=== PATIENT | female | born 1985 | race Caucasian/White ===

== ENCOUNTER 2022-03-01 22:22 | Emergency (ER) | payer MEDICAID, SELFPAY ==
[2022-03-01 22:33] VITALS: BP 133/78; PULSE 81; RESP 20; TEMP 36.4; O2SAT 97; BMI 28.2
--- NOTE | 2022-03-01 22:33 | CTR_ITS ---
PROCEDURE INFORMATION: Exam: CT Cervical Spine Without Contrast Exam date and time: 03/01/2022 10:55 PM Age: 36 years old Clinical indication: Injury or trauma; Fall; Blunt trauma; [place]: [place] striking back of head against a rock with loc. C/O head and neck pain. Lac to back of head. TECHNIQUE: Imaging protocol: Computed tomography images of the cervical spine without contrast. Radiation optimization: All CT scans at this facility use at least one of these dose optimization techniques: automated exposure control; mA and/or kV adjustment per patient size (includes targeted exams where dose is matched to clinical indication); or iterative reconstruction. COMPARISON: CT head wo con* [id number] 03/01/2022 10:52 PM RADIATION DOSE METRICS: Total DLP (mGy-cm): 728.42 FINDINGS: Bones/joints: Cervical lordosis is reversed. No cervical fracture. Discs/Spinal canal/Neural foramina: There are small disc spur complexes at C4-C5, C5-C6 and C6-C7 producing mild central canal narrowing. Interspace narrowing is most pronounced at C5-C6, C6-C7 and C7-T1. Lungs: Lung apices are normal. Soft tissues: Unremarkable. CT/CT cervical spin wo con* [id number] IMPRESSION: 1. No acute cervical spine findings. 2. Scattered small disc spur complexes without significant stenosis. 3. Reversed lordosis could be incidental but can also indicate spasm
--- NOTE | 2022-03-01 22:33 | CTR_ITS ---
PROCEDURE INFORMATION: Exam: CT Head Without Contrast Exam date and time: 03/01/2022 10:52 PM Age: 36 years old Clinical indication: Injury or trauma; Fall; Blunt trauma (contusions or hematomas); Patient [place]: [place] striking back of head against a rock with loc. C/O head and neck pain. Lac to back of head. TECHNIQUE: Imaging protocol: Computed tomography of the head without contrast. Radiation optimization: All CT scans at this facility use at least one of these dose optimization techniques: automated exposure control; mA and/or kV adjustment per patient size (includes targeted exams where dose is matched to clinical indication); or iterative reconstruction. COMPARISON: No relevant prior studies available. RADIATION DOSE METRICS: Total DLP (mGy-cm): 777.47 FINDINGS: Tubes, catheters and devices: There is a left parietal paracentral scalp laceration with associated scattered subcutaneous hemorrhage and overlying bandages. Brain: No extra-axial fluid collection, midline shift or hydrocephalus. Cerebral ventricles: No ventriculomegaly. Paranasal sinuses: Visualized sinuses are unremarkable. No fluid levels. Mastoid air cells: Visualized mastoid air cells are well aerated. Bones/joints: Unremarkable. No acute fracture. Soft tissues: Unremarkable. Other findings: No CT evidence for acute ischemia, mass or hemorrhage. CT/CT head wo con* [id number] IMPRESSION: 1. No acute intracranial findings. 2. Left parietal scalp laceration
--- NOTE | 2022-03-01 22:34 | W.ED.FALL ---
Documented by User: Landen Zhang MD 03/01/22 23:56 HPI - Fall General: Chief Complaint: Fall Stated Complaint: FALL/HIT HEAD Time Seen by Provider: 03/01/22 22:31 Source: patient and EMS Mode of arrival: EMS Limitations: no limitations History of Present Illness: 36-year-old female states that she was of the [place] tonight slipped and fell roughly 2 hours ago. She states that she struck the back of her head on a rock she does have a 2 cm laceration she had a roughly 1 minute loss of consciousness. Patient states she does have a headache and neck pain she rates a 5 out of 10. Denies any worsening improving factors. Associated symptoms-after fall: Reports headache(s) and neck pain; Denies abdominal pain or chest pain Review of Systems Const: Denies: fever(s), chills, body aches or change in appetite Eyes: Denies: blurry vision or eye discomfort ENMT: Denies: throat pain or dental pain Card: Denies: chest pain Resp: Denies: dyspnea GI: Denies: abdominal pain, nausea, vomiting or diarrhea : Denies: dysuria Musc: Reports: neck pain Skin/Breast: Denies: rash Neuro: Reports: headache(s) Psych: Denies: depression Harvey/Lymph: Denies: easy bruising All/Imm: Denies: urticaria PFSH ED PFSH: Medical History (Updated 03/01/22 @ 23:38 by Landen Zhang MD) Anxiety Depression History of drug dependence/abuse Nightmares Obesity PTSD (post-traumatic stress disorder) Surgical History History of appendectomy (~2013) History of dilatation and curettage (~2004) History of laparoscopic cholecystectomy (~2012) Family History Denies family history of Anesthesia complication Bleeding disorder Social History Smoking and tobacco status: current every day smoker (vapes) Quit status (tobacco): has quit using tobacco Year quit tobacco: 2014 Second hand smoke exposure: No Alcohol intake: never Adopted: No Caregiver/support person: Yes Lives independently: Yes Housing: House Marital status: Single service: No Current occupational status: disabled Current occupational exposures/hazards: No Pets and animals: No History of recent travel: No Leisure activites: exercise and reading Sexually active: No Current gender identity: Female Ivana/Pentecostal: [employer] Special ivana needs: No Agree to transfusion: No Financial difficulty paying for basics: Decline to Answer Physical Exam Const: COMMON NORMALS: no acute distress, patient oriented x3 and healthy appearing HENMT: COMMON NORMALS: normocephalic; head/scalp not atraumatic (2cm posterior scalp laceration) HEAD & SCALP: normocephalic; not atraumatic (2cm posterior scalp laceration) Eye: COMMON NORMALS: Equal, round and reactive pupils present and EOMs intact bilaterally PUPIL: Yes Equal, round and reactive pupils present Neck/C-Spine: COMMON NORMALS: full ROM and supple Chest: COMMONS NORMALS: normal inspection of the chest and normal palpation of entire chest wall Resp: COMMON NORMALS: normal respiratory effort, No retractions, No use of accessory muscles and clear to auscultation bilaterally AUSCULTATION: clear to auscultation bilaterally Cardio: COMMON NORMALS: regular rate, regular rhythm and No murmurs present (Cardio) RATE: regular rate RHYTHM: regular rhythm GI: COMMON NORMALS: Normal to inspection, nondistended, normoactive bowel sounds present, Soft to palpation, non-tender and no masses PALPATION: Yes Soft to palpation Extremity: COMMON NORMALS: normal to inspection and full ROM Neuro: COMMON NORMALS: patient oriented x3, moves all extremities and no focal motor deficits Psych: COMMON NORMALS: mental status grossly normal, Normal thought process present and cooperative THOUGHT PROCESS: Normal thought process present Skin: COMMON NORMALS: no rashes or lesions noted and no wounds GENERAL SKIN EXAM: no rashes or lesions noted Course Vital Signs: Vital signs: Vital Signs Temperature 97.6 F 03/01/22 22:33 Pulse Rate 81 03/01/22 22:33 Respiratory Rate 20 H 03/01/22 22:33 Blood Pressure 133/78 03/01/22 22:33 Pulse Oximetry 97 03/01/22 22:33 MDM - Fall Medical Decision Making Patient presents here with a head injury along with a cervical strain from a fall she also has a head laceration was repaired here she is return in 1 week for staple removal she is stable for discharge is to follow-up with PCP and return if worsening she understands agrees to plan. Lab Data Radiology Impressions Cervical Spine CT 03/01/22 22:33 IMPRESSION: 1. No acute cervical spine findings. 2. Scattered small disc spur complexes without significant stenosis. 3. Reversed lordosis could be incidental but can also indicate spasm Head CT 03/01/22 22:33 IMPRESSION: 1. No acute intracranial findings. 2. Left parietal scalp laceration Shoulder X-Ray 03/01/22 23:39 IMPRESSION: Unremarkable Chest X-Ray 03/01/22 23:42 IMPRESSION: Unremarkable Discharge Plan Discharge Patient Disposition: Home Clinical Impression: Fall Qualifiers: Encounter type: initial encounter Qualified Code(s): W19.XXXA - Unspecified fall, initial encounter Laceration of head Qualifiers: Encounter type: initial encounter Location of open wound of head: scalp Foreign body presence: without foreign body Qualified Code(s): S01.01XA - Laceration without foreign body of scalp, initial encounter Condition: Stable Prescriptions: New methocarbamol 750 mg tablet 750 mg PO Q6H PRN (Reason: spasms) Qty: 20 0RF No Action mupirocin 2 % ointment 1 applic topical BID Qty: 22 0RF gabapentin 800 mg tablet 800 mg PO QID 0RF ibuprofen 800 mg tablet 800 mg PO Q8H 0RF hydroxyzine pamoate [Vistaril] 50 mg capsule 50 mg PO QID PRN0RF ranitidine HCl [Zantac] 150 mg tablet 150 mg PO BID 0RF quetiapine [Seroquel] 50 mg tablet 50 mg PO DAILY 0RF citalopram [Celexa] 40 mg tablet 40 mg PO DAILY 0RF buprenorphine-naloxone [Suboxone] 8-2 mg film 1 film BUCCAL TID 0RF cholecalciferol (vitamin D3) 50 mcg (2,000 unit) capsule 2,000 unit PO DAILY 0RF magnesium 200 mg tablet 400 mg PO DAILY 0RF prednisone 20 mg tablet 40 mg PO DAILY 5 Days Qty: 10 0RF Discharge Orders: Discharge ED (Routine); Ordered 03/01/22 Ordered By: Landen Zhang Referrals: Jaimie Ortega NP [Primary Care Provider] - 1-3 days Discharge Diet: Advance as tolerated Discharge Activity: Resume usual activity Patient Instructions: Head Laceration (ED) Activity Restrictions/Additional Instructions: staple removal in 7 days Coding Level of Care Code ED Manager Environmental Services for Chg Fwd Exam Comprehensive Documented by User: DONALD Olivas 03/02/22 00:13 HPI - Fall General: Chief Complaint: Fall Stated Complaint: FALL/HIT HEAD Time Seen by Provider: 03/01/22 22:31 [facility] ED PFSH: Medical History (Updated 03/01/22 @ 23:38 by Landen Zhang MD) Anxiety Depression History of drug dependence/abuse Nightmares Obesity PTSD (post-traumatic stress disorder) Surgical History History of appendectomy (~2013) History of dilatation and curettage (~2004) History of laparoscopic cholecystectomy (~2012) Family History Denies family history of Anesthesia complication Bleeding disorder Social History Smoking and tobacco status: current every day smoker (vapes) Quit status (tobacco): has quit using tobacco Year quit tobacco: 2014 Second hand smoke exposure: No Alcohol intake: never Adopted: No Caregiver/support person: Yes Lives independently: Yes Housing: House Marital status: Single service: No Current occupational status: disabled Current occupational exposures/hazards: No Pets and animals: No History of recent travel: No Leisure activites: exercise and reading Sexually active: No Current gender identity: Female Ivana/Pentecostal: [employer] Special ivana needs: No Agree to transfusion: No Financial difficulty paying for basics: Decline to Answer Procedures Laceration Laceration 1: Site: scalp Size (cm): 4 Description: linear Local Anesthetic: lidocaine 1% and with epi Amount of anesthesia used (mL): 3 Pre-repair: wound explored, irrigated extensively and deep structures intact Skin layer closed with: other (staple) Number of sutures: 7 Course ED course: 2320, wound closed to occipital scalp with 7 sutures, patient tolerated well. [email or web address] Vital Signs: Vital signs: Vital Signs Temperature 97.6 F 03/01/22 22:33 Pulse Rate 81 03/01/22 22:33 Respiratory Rate 20 H 03/01/22 22:33 Blood Pressure 133/78 03/01/22 22:33 Pulse Oximetry 97 03/01/22 22:33 MDM - Fall Lab Data Radiology Impressions Cervical Spine CT 03/01/22 22:33 IMPRESSION: 1. No acute cervical spine findings. 2. Scattered small disc spur complexes without significant stenosis. 3. Reversed lordosis could be incidental but can also indicate spasm Head CT 03/01/22 22:33 IMPRESSION: 1. No acute intracranial findings. 2. Left parietal scalp laceration Shoulder X-Ray 03/01/22 23:39 IMPRESSION: Unremarkable Chest X-Ray 03/01/22 23:42
--- NOTE | 2022-03-01 23:39 | XRR_ITS ---
PROCEDURE INFORMATION: Exam: XR Right Shoulder Exam date and time: 03/01/2022 11:43 PM Age: 36 years old Clinical indication: Injury or trauma; Fall; Blunt trauma (contusions or hematomas); Right; Patient [place]: [place] C/O RT shoulder pain. TECHNIQUE: Imaging protocol: XR Right shoulder. Views: 2 or more views. COMPARISON: CT cervical spin wo con* [id number] 03/01/2022 10:55 PM FINDINGS: Bones/joints: Normal. Soft tissues: Normal. XR/XR shoulder RT min 2V* [id number] IMPRESSION: Unremarkable
--- NOTE | 2022-03-01 23:42 | XRR_ITS ---
PROCEDURE INFORMATION: Exam: XR Chest Exam date and time: 03/01/2022 11:51 PM Age: 36 years old Clinical indication: Injury or trauma; Fall; Blunt trauma (contusions or hematomas); Prior surgery; Surgery type: Gb; Patient HX: [place] C/O RT chest wall pain. TECHNIQUE: Imaging protocol: XR of the chest. Views: 1 view. COMPARISON: CR (CHEST, ) 03/01/2022 11:43 PM FINDINGS: Lungs: Unremarkable. No consolidation. Pleural spaces: Unremarkable. No pleural effusion. No pneumothorax. Heart/Mediastinum: Unremarkable. No cardiomegaly. Bones/joints: Unremarkable. XR/XR chest 1V portable [id number] IMPRESSION: Unremarkable
[2022-03-02 00:47] VITALS: BP 113/73; PULSE 76; RESP 16; O2SAT 95
== END 2022-03-02 00:57 | disposition home or self-care (01) ==
PROVIDERS: Emergency Provider Emergency Medicine; PCP Nurse Practitioner
DX: S01.01XA Laceration without foreign body of scalp, initial encounter (principal); W01.198A Fall on same level from slipping, tripping and stumbling with subsequent striking against other object, initial encounter
CPT/HCPCS: 12002; 70450; 71045; 72125; 73030; 99283

== ENCOUNTER → 2024-06-25 13:36 | Outpatient (BNVA) | payer MEDICAID, SELFPAY | PROVIDERS: PCP Nurse Practitioner; Visit Provider Nurse Practitioner | DX: R10.9 Unspecified abdominal pain (principal) | CPT/HCPCS: 81000 ==

== ENCOUNTER 2024-08-21 16:11 | Emergency (ER) | payer MEDICAID, SELFPAY ==
[2024-08-21 16:22] VITALS: BP 126/79; PULSE 81; RESP 16; TEMP 36.7; O2SAT 99; BMI 23.6
[2024-08-21 16:29] VITALS: BP 136/81; PULSE 73; O2SAT 98
[2024-08-21 16:59] VITALS: BP 132/89; PULSE 71; O2SAT 100
--- NOTE | 2024-08-21 17:04 | ECG_ITS ---
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 Measurements Intervals [place] Rate: 70 P: 39 NM: 221 QRS: 19 QRSD: 87 T: 37 QT: 376 QTc: 407 Interpretive Statements SINUS RHYTHM WITH FIRST DEGREE AV BLOCK No previous ECG available for comparison Electronically Signed On 08-24-2024 10:39:13 CREATIVE ASSISTANT by Karlos Cm M.D. [email or web address]
--- NOTE | 2024-08-21 17:04 | XRR_ITS ---
PROCEDURE INFORMATION: Exam: XR Chest Exam date and time: 08/21/2024 5:18 PM Age: 39 years old Clinical indication: Other: Dizzy TECHNIQUE: Imaging protocol: Radiologic exam of the chest. Views: 1 view. COMPARISON: CR XR chest 1V portable [id number] 03/01/2022 11:51 PM FINDINGS: Tubes, catheters and devices: None. Lungs: The lungs appear clear. Pleural spaces: No pleural effusion. No pneumothorax. Heart/Mediastinum: Mediastinum and quentin appear unremarkable. Bones/joints: Mild to moderate generalized bony degenerative changes. Bony structures appear otherwise unremarkable. XR/XR chest 1V portable [id number] IMPRESSION: No evidence for acute abnormality identified in the chest.
--- NOTE | 2024-08-21 17:13 | W.ED.DIZZY ---
HPI - Dizziness General: Chief Complaint: Dizziness Stated Complaint: high BP, dizzy Time Seen by Provider: 08/21/24 17:01 Source: patient Mode of arrival: ambulatory Limitations: no limitations History of Present Illness: HPI Narrative: Patient is a 39-year-old female with past medical history of anxiety, depression, and PTSD who presents to the emergency department complaining of dizziness over the past few weeks. States it does not matter if she is sitting, standing, or lying flat she feels dizzy intermittently. It has been worsening over the past couple of days. She states she does not take any medications, only takes multiple vitamins and supplements. States she has been trying to take magnesium for her symptoms with no relief. She states that all she drinks is water, does not feel dehydrated. Also reports her blood pressure has been running high, here in the emergency department is 126/79 with other vitals being normal. She is denying any neurological symptoms, no vomiting, no chest pain or shortness of breath, no urinary symptoms. She is stating however that her anxiety has been increased since onset of dizziness. MD elicited complaint: dizziness Onset (ago): week(s) Timing: gradual onset Severity: moderate History of similar symptoms: No Exacerbating factors: nothing Relieving factors: nothing Associated symptoms: Denies chest pain, chills, headache(s), nausea, palpitations or vomiting Associated neuro symptoms: Deny numbness in extremities Related Data Home Medications Medication Instructions Recorded Confirmed gabapentin 800 mg tablet 800 mg PO QID 12/11/19 06/25/24 hydroxyzine pamoate 50 mg capsule 50 mg PO QID PRN 12/11/19 06/25/24 (Vistaril) dextroamphetamine-amphetamine ER 20 mg PO DAILY 02/18/23 06/25/24 20 mg 24hr capsule,extend release (Adderall XR) famotidine 10 mg tablet 10 mg PO DAILY 02/18/23 06/25/24 loratadine 5 mg-pseudoephedrine ER 1 tab PO Q12H 02/18/23 06/25/24 120 mg tablet,extended release,12hr (Claritin-D 12 Hour) Previous Rx's Medication Instructions Recorded mupirocin 2 % topical ointment 1 applic topical BID #22 grams 06/29/21 lidocaine 5 % topical patch 1 patch topical DAILY PRN pain #15 06/25/24 ea meclizine 50 mg tablet 50 mg PO DAILY PRN dizziness #30 08/21/24 tabs Allergies Allergy/AdvReac Type Severity Reaction Status Date / Time aspirin Allergy Severe ALGY-Bliste Verified 08/21/24 16:29 r ketorolac [From Toradol] Allergy Unknown Verified 08/21/24 16:29 tramadol [From Ultram] AdvReac Severe ADR-Seizure Verified 08/21/24 16:29 Review of Systems General: Reports: 10 or more systems reviewed and unremarkable except in HPI and below Const: Denies: fever(s), chills or fatigue Eyes: Denies: change in vision ENMT: Denies: throat pain, ear or mastoid pain or nasal discharge Card: Denies: chest pain, palpitations, swelling of feet/ankles or lightheadedness Resp: Denies: dyspnea, productive cough or wheezing GI: Denies: abdominal pain, nausea, vomiting, diarrhea or constipation : Denies: flank pain, difficulty voiding, dysuria or urinary frequency Musc: Denies: neck pain, back pain or joint pain Skin/Breast: Denies: rash Neuro: Reports: dizziness; Denies: headache(s), numbness in extremities, weakness in extremities, sensory changes or lack of coordination Psych: Reports: anxiety PFSH ED PFSH: Medical History (Updated 08/21/24 @ 18:43 by TRISTON Gandara) Obesity Anxiety Depression Nightmares PTSD (post-traumatic stress disorder) History of drug dependence/abuse Surgical History History of laparoscopic cholecystectomy (~2012) History of appendectomy (~2013) History of dilatation and curettage (~2004) Family History Denies family history of Anesthesia complication Bleeding disorder Social History Smoking and tobacco/nicotine status: current every day tobacco/nicotine user (vape) Quit status (tobacco/nicotine): has quit using Year quit tobacco: 2014 Second hand smoke exposure: No Alcohol intake: never Substance/Drug Use: never Adopted: No Caregiver/support person: Yes Lives independently: Yes Housing: House Marital status: Single service: No Current occupational status: disabled Current occupational exposures/hazards: No Pets and animals: No Leisure activites: exercise and reading Sexually active: No Do you think of yourself as: Straight/Heterosexual Current gender identity: Female Ivana/Confucianist: Worship Special ivana needs: No Agree to transfusion: No Female Reproductive History: Date of last menstrual period: 08/17/24 Physical Exam Const: COMMON NORMALS: no acute distress, patient oriented x3 and no limitations GENERAL APPEARANCE: cooperative, well developed and anxious ORIENTATION/CONSCIOUSNESS: Yes awake, Yes oriented to person, Yes oriented to place and Yes oriented to time HENMT: COMMON NORMALS: normocephalic, atraumatic and hearing grossly normal bilaterally HEAD & SCALP: normocephalic and atraumatic Eye: COMMON NORMALS: Equal, round and reactive pupils present, EOMs intact bilaterally and conjunctivae normal CONJUNCTIVA: Yes conjunctivae normal PUPIL: Yes Equal, round and reactive pupils present Neck/C-Spine: COMMON NORMALS: full ROM, supple and no JVD Resp: COMMON NORMALS: normal respiratory effort, No retractions, No use of accessory muscles and clear to auscultation bilaterally AUSCULTATION: clear to auscultation bilaterally Cardio: COMMON NORMALS: no JVD, regular rate, regular rhythm, No clicks present (Cardio), No murmurs present (Cardio) and No rub (Cardio) RATE: regular rate RHYTHM: regular rhythm Extremity: COMMON NORMALS: normal to inspection, full ROM and capillary refill normal Neuro: COMMON NORMALS: patient oriented x3, CN's II-XII intact bilaterally, moves all extremities, no focal motor deficits and no sensory deficits noted SENSORIUM/ORIENTATION: Yes oriented to person, Yes oriented to place and Yes oriented to time Psych: COMMON NORMALS: mental status grossly normal and Normal thought process present THOUGHT PROCESS: Normal thought process present Skin: COMMON NORMALS: no rashes or lesions noted GENERAL SKIN EXAM: no rashes or lesions noted Course Vital Signs: Vital signs: Vital Signs Temperature 98.0 F 08/21/24 16:22 Pulse Rate 81 08/21/24 16:22 Respiratory Rate 16 08/21/24 16:22 Blood Pressure 126/79 08/21/24 16:22 Pulse Oximetry 99 08/21/24 16:22 Oxygen Delivery Me thod Room Air 08/21/24 16:22 [facility] - Dizziness Medical Decision Making Patient has been having dizziness for the past few weeks. She does not take any medications but takes numerous supplements and herbs, which could in itself be causing some of her dizziness. Her EKG showing normal sinus rhythm rate of 70 with no STEMI. Her chest x-ray was normal. Lab work normal including normal urinalysis. Gave her 1 meclizine here, states she is still dizzy. Will send prescription for meclizine to try to treat what is likely benign paroxysmal positional vertigo, however cannot rule out that her dizziness is from all of the herbs and supplements she is taking. Because of this, we will have her follow-up with primary care to make sure that her dizziness is getting better. We also discussed CT scan here, though on physical exam she was completely neurologically intact and I do not suspect any intracranial cause for her dizziness at this time. She states that she would rather wait on this, and will return if she continues to have dizziness despite therapy. Reasons to return were discussed. Patient discharged home at this time. Lab Data 08/21/24 17:43 08/21/24 17:43 Radiology Impressions Chest X-Ray 08/21/24 17:04 IMPRESSION: No evidence for acute abnormality identified in the chest. Laboratory Results WBC 6.12 10^3/uL (3.29-11.43) 08/21/24 17:43 RBC 4.74 10^6/uL (3.85-5.65) 08/21/24 17:43 Hgb 15.00 g/dL (11.27-16.99) 08/21/24 17:43 Hct 43.3 % (36-47) 08/21/24 17:43 MCV 91.4 fl (85-98) 08/21/24 17:43 MCH 31.6 pg (27-33) 08/21/24 17:43 MCHC 34.6 g/dL (30-55) 08/21/24 17:43 RDW 11.7 % (12.1-15.1) L 08/21/24 17:43 Plt Count 221 10^3/cmm (157-399) 08/21/24 17:43 MPV 10.8 fL (7.4-10.4) H 08/21/24 17:43 Neut % (Auto) 67.6 % 08/21/24 17:43 Lymph % (Auto) 24.2 % 08/21/24 17:43 [place] % (Auto) 6.5 % 08/21/24 17:43 Eos % (Auto) 0.8 % 08/21/24 17:43 Baso % (Auto) 0.7 % 08/21/24 17:43 Neut # (Auto) 4.14 10^3/uL (1.8-7.7) 08/21/24 17:43 Lymph # (Auto) 1.5 10^3/uL (0.8-4.8) 08/21/24 17:43 Gates # (Auto) 0.4 10^3/uL (0.2-0.9) 08/21/24 17:43 Eos # (Auto) 0.1 10^3/uL (0.0-0.8) 08/21/24 17:43 Baso # (Auto) 0.0 10^3/uL (0.0-0.1) 08/21/24 17:43 Nucleated RBC % (auto) 0 % 08/21/24 17:43 Nucleated RBCs # 0.0 /100WBC 08/21/24 17:43 Sodium 142 mmol/L (136-145) 08/21/24 17:43 Potassium 4.2 mmol/L (3.5-5.1) 08/21/24 17:43 Chloride 105 mmol/L (98-107) 08/21/24 17:43 Carbon Dioxide 29 mmol/L (22-29) 08/21/24 17:43 Anion Gap 12.2 (5-19) 08/21/24 17:43 BUN 10 mg/dL (6-20) 08/21/24 17:43 Creatinine 0.8 mg/dL (0.5-0.9) 08/21/24 17:43 GFR Calculation 79.0 mL/min (90-130) L 08/21/24 17:43 Glucose 96 mg/dL (65-115) 08/21/24 17:43 Calculated Osmolality 293 mOsm/kg (285-295) 08/21/24 17:43 Calcium 10.1 mg/dL (8.5-10.5) 08/21/24 17:43 Total Bilirubin 0.3 mg/dL (0.15-1.2) 08/21/24 17:43 AST 14 U/L (0-32) 08/21/24 17:43 ALT 14 U/L (0-33) 08/21/24 17:43 Alkaline Phosphatase 56 U/L (35-105) 08/21/24 17:43 Total Protein 7.3 g/dL (6.6-8.7) 08/21/24 17:43 Albumin 4.7 g/dL (3.5-5.2) 08/21/24 17:43 Globulin 2.6 g/dL (1.3-4.6) 08/21/24 17:43 HCG, Qual Negative (Negative) 08/21/24 17:43 Urine Color Yellow (Yellow) 08/21/24 17:26 Urine Appearance Clear (CLEAR) 08/21/24 17: Urine pH 7.0 (5-7) 08/21/24 17:26 Ur Specific [place] 1.005 (1.005-1.030) 08/21/24 17: Urine Protein Negative (Negative) 08/21/24 17: Urine Glucose (UA) Negative (Normal) 08/21/24 17: Urine Ketones Negative (Negative) 08/21/24 17:26 Urine Blood 2+ (Negative) A 08/21/24 17: Urine Nitrate Negative (Negative) 08/21/24 17: Urine Bilirubin Negative (Negative) 08/21/24 17: Urine Urobilinogen 0.2 mg/dL (Negative) 08/21/24 17:26 Ur Leukocyte Esterase Negative (Negative) 08/21/24 17: Urine RBC 6-10 /hpf (0-2) 08/21/24 17:26 Urine WBC 0-5 /hpf (0-5) 08/21/24 17:26 Ur Squamous Epith Cells 0-5 /hpf (0-5) 08/21/24 17: Amorphous Sediment Not Reportable 08/21/24 17:26 Urine Bacteria None seen /hpf (NONE) 08/21/24 17: Hyaline Casts 0-4 /lpf H 08/21/24 17:26 All radiology interpretation(s) finalized by discharge Discharge Plan Discharge Patient Disposition: Home Clinical Impression: Benign paroxysmal positional vertigo Qualifiers: Laterality: unspecified laterality Qualified Code(s): H81.10 - Benign paroxysmal vertigo, unspecified ear Condition: Stable Prescriptions: New meclizine 50 mg tablet 50 mg PO DAILY PRN (Reason: dizziness) Qty: 30 0RF No Action mupirocin 2 % ointment 1 applic topical BID Qty: 22 0RF gabapentin 800 mg tablet 800 mg PO QID hydroxyzine pamoate [Vistaril] 50 mg capsule 50 mg PO QID PRN Claritin-D 12 Hour 5-120 mg tablet extended release 12 hr 1 tab PO Q12H famotidine 10 mg tablet 10 mg PO DAILY dextroamphetamine-amphetamine [Adderall XR] 20 mg capsule,extended release 24hr 20 mg PO DAILY lidocaine 5 % adhesive patch,medicated 1 patch topical DAILY PRN (Reason: pain) Qty: 15 0RF Rx Instructions: leave on most painful area for up to 12 hrs Discharge Orders: Discharge ED (Routine); Ordered 08/21/24 Ordered By: Davi Prince Patient Instructions: Vertigo (ED), Dizziness (ED) Activity Restrictions/Additional Instructions: Take meclizine as prescribed. Continue drinking plenty of fluids. Close follow-up with primary care for general reevaluation, and please return with any persistence of dizziness or other new or concerning symptoms you may have. Coding Level of Care Code ED Property Insurance Inspector for Doyle Rivera
[2024-08-21] MEDS: meclizine 25 mg tablet 50 MG PO (17:45)
[2024-08-21 17:49] LABS: Basophils % 0.7 %; Eosinophils # 0.1 10^3/uL (0.0-0.8); Eosinophils % 0.8 %; Hematocrit 43.3 % (36-47); Lymphocytes # 1.5 10^3/uL (0.8-4.8); Lymphocytes % 24.2 %; Mean Corpuscular HGB Conc 34.6 g/dL (30-55); Mean Corpuscular Hemoglobin 31.6 pg (27-33); Mean Corpuscular Volume 91.4 fl (85-98); Mean Platelet Volume 10.8 fL (7.4-10.4); Monocytes # 0.4 10^3/uL (0.2-0.9); Monocytes % 6.5 %; Neutrophils # 4.14 10^3/uL (1.8-7.7); Neutrophils % 67.6 %; Nucleated Red Blood Cells % 0 %; Platelet Count 221 10^3/cmm (157-399); Red Blood Count 4.74 10^6/uL (3.85-5.65); Red Cell Distribution Width 11.7 % (12.1-15.1); White Blood Count 6.12 10^3/uL (3.29-11.43)
[2024-08-21 17:59] VITALS: BP 105/70; PULSE 64; O2SAT 100
[2024-08-21 18:00] LABS: Bilirubin Urine Negative (Negative); Blood Urine 2+ (Negative); Glucose Urine UA Negative (Normal); Ketones Urine Negative (Negative); Leukocyte Esterase Urine Negative (Negative); Nitrate Urine Negative (Negative); Protein Urine Negative (Negative); Specific Gravity, Urine 1.005 (1.005-1.030); Urine Appearance Clear (CLEAR); Urine Color Yellow (Yellow); Urobilinogen Urine 0.2 mg/dL (Negative)
[2024-08-21 18:00] LABS: HCG, Serum Qual Negative (Negative)
[2024-08-21 18:05] LABS: Alanine Aminotransferase 14 U/L (0-33); Albumin Level 4.7 g/dL (3.5-5.2); Alkaline Phosphatase 56 U/L (35-105); Anion Gap 12.2 (5-19); Aspartate Amino Transferase 14 U/L (0-32); Blood Urea Nitrogen 10 mg/dL (6-20); Calcium 10.1 mg/dL (8.5-10.5); Carbon Dioxide 29 mmol/L (22-29); Chloride 105 mmol/L (98-107); Creatinine Clr Calc Pharmacy 100.4395; Globulin 2.6 g/dL (1.3-4.6); Glucose 96 mg/dL (65-115); Osmolality Calculated 293 mOsm/kg (285-295); Potassium 4.2 mmol/L (3.5-5.1); Sodium 142 mmol/L (136-145); Total Bilirubin 0.3 mg/dL (0.15-1.2); Total Protein 7.3 g/dL (6.6-8.7)
[2024-08-21 18:06] LABS: Add Urine Microscopic? YES; Bacteria Urine None Seen /hpf; Hyaline Casts Urine 0-4 /lpf; Squamous Epithelial Cell Urine 0-5 /hpf (0-5); WBC Urine 0-5 /hpf (0-5)
[2024-08-21 18:59] VITALS: BP 134/82; PULSE 70; O2SAT 100
[2024-08-21 19:51] VITALS: BP 134/80; PULSE 74; O2SAT 100
== END 2024-08-21 19:30 | disposition home or self-care (01) ==
PROVIDERS: Emergency Provider Physician Assistant
DX: H81.10 Benign paroxysmal vertigo, unspecified ear (principal); F17.290 Nicotine dependence, other tobacco product, uncomplicated
CPT/HCPCS: 71045; 80053; 81001; 84703; 85025; 93005; 99285; J8597

== ENCOUNTER 2024-12-24 10:43 | Outpatient (CLI) | payer MEDICAID, SELFPAY ==
--- NOTE | 2024-12-24 10:48 | MM_ITS ---
WS: [id number] DIAGNOSTIC BILATERAL DIGITAL BREAST TOMOSYNTHESIS MAMMOGRAPHY WITH CAD LEFT breast ultrasound, limited HISTORY: L BREAST MASS COMPARISON: 11/21/2023 TECHNIQUE: Bilateral craniocaudad, mediolateral oblique, and mediolateral views are submitted with tomosynthesis and SM. Spot compression LEFT MLO computer aided detection utilized. Breast composition: The breasts are heterogeneously dense, which may obscure small masses. Triangular marker is placed along the lateral LEFT breast near the the nipple line. There is no mass identified. No distortion. Ultrasound to follow. LEFT breast ultrasound: Ultrasound directed to the 4:00 axis. No abnormality in the area of the palpable abnormality as directed by the patient. MM/MM diag BI tomosynthesis [id number] IMPRESSION: BI-RADS: 2 - Benign FOLLOW UP: 1 Year Follow-up
== END 2024-12-24 10:44 | disposition home or self-care (01) ==
PROVIDERS: PCP Nurse Practitioner Family; Visit Provider Nurse Practitioner Family
DX: N63.23 Unspecified lump in the left breast, lower outer quadrant (principal); R92.333 Mammographic heterogeneous density, bilateral breasts
CPT/HCPCS: 76642; 77062; G0279